=== PATIENT | female | born 1970 | race Caucasian/White ===

== ENCOUNTER 2020-04-13 18:44 | Emergency (ER) | payer SELFPAY ==
[~2020-04-13] VITALS: Ht 162.6 cm; Wt 76.8 kg
[2020-04-13 18:50] VITALS: Ht 162.6 cm; Wt 76.8 kg
[2020-04-13 19:17] LABS: BASOPHILS 0.2 % (0-2); EOSINOPHILS 3.1 % (0-7); HEMATOCRIT 42.1 % (36.0-48.0); HEMOGLOBIN 14.1 g/dL (12-16); IMMATURE GRANULOCYTES 0.2 % (0-5); LYMPHOCYTES 37.5 % (15-50); MCH 31.1 pg (26.0-34.0); MCHC 33.5 g/dL (31.0-37.0); MCV 92.9 fL (80.0-100.0); MEAN PLATELET VOLUME 11.3 fL (7.4-10.4); MONOCYTES 7.3 % (2-11); NEUTROPHILS 51.7 % (40-80); PLATELET COUNT 246 10x3/uL (130-400); RBC 4.53 10x6/uL (4.00-5.40); RDW 13.4 % (11.5-14.5); WBC 9.3 10x3/uL (4.8-10.8)
[2020-04-13 19:25] LABS: CALC OSMOLALITY 285 mosm/kg (275-300); CALCIUM 9.4 mg/dL (8.5-10.1); CARBON DIOXIDE 26.8 mmol/L (21.0-32.0); CHLORIDE - SERUM 108 mmol/L (98-107); CREATININE - SERUM 0.9 mg/dL (0.6-1.3); GLUCOSE 111 mg/dL (74-106); POTASSIUM - SERUM 3.6 mmol/L (3.5-5.1); SODIUM 144 mmol/L (136-145); UREA NITROGEN 6 mg/dL (7-18); eGFR NON AFRICAN AMERICAN 70 mL/min (90-120)
[2020-04-13 19:26] LABS: APTT 29.2 SECONDS (22.8-39.4); PROTIME 13.2 SECONDS (11.6-15.0)
[2020-04-13 19:41] LABS: ALBUMIN 3.6 g/dL (3.4-5.0); ALKALINE PHOSPHATASE 94 U/L (30-120); ALT (SGPT) 13 U/L (10-68); BILIRUBIN - TOTAL 0.16 mg/dL (0.2-1.3); CKMB 0.8 U/L (0.0-3.6); CREATINE KINASE 66 UL (21-215); PROTEIN - SERUM 7.3 g/dL (6.4-8.2)
[2020-04-13 19:43] LABS: TROPONIN-I < 0.017 ng/mL (0.000-0.060)
[2020-04-13 21:51] VITALS: BP 116/72
[2020-04-13 21:53] LABS: AMYLASE - SERUM 35 U/L (25-115); CKMB 0.8 U/L (0.0-3.6); CREATINE KINASE 57 UL (21-215); LIPASE 73 U/L (73-393)
[2020-04-13 21:55] LABS: TROPONIN-I < 0.017 ng/mL (0.000-0.060)
[2020-04-13] MEDS ORDERED: CARAFATE1 G PO (22:12)
[2020-04-13] MEDS ORDERED: PROTONIX40 MG PO (22:12)
== END 2020-04-13 22:32 | disposition home or self-care (01) ==
LOC: D.ER 18:44
PROVIDERS: Family Medicine
DX: K20.9 Esophagitis, unspecified (principal); R07.9 Chest pain, unspecified